=== PATIENT | female | born 1940 | race Caucasian/White ===

== ENCOUNTER → 2020-08-23 12:18 | Outpatient (CLI) | payer MEDICARE, OTHER, SELFPAY ==
--- NOTE | 2020-08-23 | DI.MG.S_ITS ---
BILATERAL DIGITAL SCREENING MAMMOGRAM 3D/2D WITH CAD: 08/23/2020 CLINICAL: Routine screening. Comparison is made to exams dated: 06/27/2018 mammogram, 06/07/2017 mammogram, and 04/19/2016 mammogram - outside location. There are scattered fibroglandular elements in both breasts. Current study was also evaluated with a Computer Aided Detection (CAD) system. There are benign calcifications in both breasts. No significant masses, calcifications, or other findings are seen in either breast. There has been no significant interval change. IMPRESSION: BENIGN There is no mammographic evidence of malignancy. A 1 year screening mammogram is recommended. This exam was interpreted at Station ID: [id number]. NOTE: For mammograms, a report in lay terms will be sent to the patient. Approximately 15% of breast malignancies will not be visualized mammographically. In the management of a palpable breast mass, a negative mammogram must not discourage biopsy of a clinically suspicious lesion. Electronically Signed By: Gurwinder meier/talia:08/23/2020 15:14:59 letter sent: Normal Exam ACR BI-RADS Category 2: Benign Finding(s) 3342F
== END ==
PROVIDERS: Referring Provider Hospitalist; Visit Provider Hospitalist
DX: Z12.31 Encounter for screening mammogram for malignant neoplasm of breast (principal)
CPT/HCPCS: 77063; 77067

== ENCOUNTER → 2021-03-15 13:08 | Outpatient (CLI) | payer MEDICARE, OTHER, SELFPAY ==
--- NOTE | 2021-03-15 | DI.RAD.S_ITS ---
PROCEDURE: XR LUMBAR SPINE MIN 4V INDICATIONS: Spondylosis without myelopathy or radiculopathy, lumbar region TECHNIQUE: 5 views of the lumbar spine were acquired, including bilateral oblique views COMPARISON: None. FINDINGS: Bones: 5 nonrib-bearing vertebrae are present. No traumatic subluxation. Mild endplate osteophytosis. No vertebral body compression fractures. No suspicious bony lesions. Facet arthrosis, most prominent at L5-S1. Soft tissues: Overlying bowel gas pattern is normal. Vascular calcifications are seen. Oblique images: No pars defects. IMPRESSION: No acute osseous abnormality. Dictated by: Hamilton Calhoun M.D. on 03/15/2021 at 15:07 Approved by: Hamilton Calhoun M.D. on 03/15/2021 at 15:09
== END ==
PROVIDERS: PCP Hospitalist; Referring Provider Hospitalist; Visit Provider Hospitalist
DX: M47.816 Spondylosis without myelopathy or radiculopathy, lumbar region (principal)
CPT/HCPCS: 72110

== ENCOUNTER → 2021-08-08 08:31 | Outpatient (ROUT) | payer SELFPAY ==
[2021-08-08 11:35] LABS: Clostridium Difficile Tox PCR Negative for C. diff (Negative)
== END ==
PROVIDERS: PCP Hospitalist; Visit Provider Emergency Medicine
DX: I10 Essential (primary) hypertension (principal); E11.9 Type 2 diabetes mellitus without complications; M19.90 Unspecified osteoarthritis, unspecified site; K21.9 Gastro-esophageal reflux disease without esophagitis
CPT/HCPCS: 87493

== ENCOUNTER → 2022-02-16 11:34 | Outpatient (CLI) | payer MEDICARE, OTHER, SELFPAY ==
--- NOTE | 2022-02-16 | DI.MG.S_ITS ---
BILATERAL DIGITAL SCREENING MAMMOGRAM 3D/2D WITH CAD: 02/16/2022 CLINICAL: Routine screening. Comparison is made to exams dated: 08/23/2020 mammogram - [facility], 06/27/2018 mammogram, and 06/07/2017 mammogram - outside location. There are scattered areas of fibroglandular density in both breasts (category b / 25%-50% glandular tissue). Current study was also evaluated with a Computer Aided Detection (CAD) system. There are benign calcifications in both breasts. No significant masses, calcifications, or other findings are seen in either breast. There has been no significant interval change. IMPRESSION: BENIGN There is no mammographic evidence of malignancy. A 1 year screening mammogram is recommended. Based on the Tyrer Cuzick model (a risk assessment model) the patient's lifetime risk is 4.3% and her 10 year risk is 0.0%. According to the ACR, ACS, and NCCN guidelines, an annual breast MRI exam along with mammogram is recommended if the patient's lifetime risk is 20% or greater. This exam was interpreted at Station ID: [id number]. NOTE: For mammograms, a report in lay terms will be sent to the patient. Approximately 15% of breast malignancies will not be visualized mammographically. In the management of a palpable breast mass, a negative mammogram must not discourage biopsy of a clinically suspicious lesion. Electronically Signed By: Jose Haddad M.D., jr/talia:02/16/2022 12:06:21 letter sent: Normal Exam ACR BI-RADS Category 2: Benign Finding(s) 3342F
== END ==
PROVIDERS: PCP Hospitalist; Referring Provider Hospitalist; Visit Provider Hospitalist
DX: Z12.31 Encounter for screening mammogram for malignant neoplasm of breast (principal)
CPT/HCPCS: 77063; 77067

== ENCOUNTER → 2022-08-16 15:49 | Outpatient (CLI) | payer MEDICARE, OTHER, SELFPAY ==
--- NOTE | 2022-08-16 | DI.RAD.S_ITS ---
PROCEDURE: XR FOOT RT MIN 3V INDICATIONS: Stress fracture, right foot, initial encounter for fracture TECHNIQUE: 3 views of the foot were acquired. COMPARISON: None. FINDINGS: Bones: Similar appearance of the bony deformity of the 5th metatarsal head. Osteopenia. Pes cavus. Midfoot joint space narrowing associated osteophytosis. Similar periosteal reaction of the 2nd through 4th metatarsals. Soft tissues: No tibiotalar joint effusion. Achilles tendon appears normal. IMPRESSION: Similar periosteal reaction of the 2nd through 4th metatarsals, probably representing healing stress fractures. Similar bony deformity of the 5th metatarsal head. Dictated by: Doc Nicholson M.D. on 08/16/2022 at 16:36 Approved by: Doc Nicholson M.D. on 08/16/2022 at 16:42
== END ==
PROVIDERS: PCP Hospitalist; Referring Provider Podiatrist Foot & Ankle Surgery; Visit Provider Podiatrist Foot & Ankle Surgery
DX: M84.374A Stress fracture, right foot, initial encounter for fracture (principal)
CPT/HCPCS: 73630

== ENCOUNTER 2023-01-30 12:03 | Outpatient (CLI) | payer MEDICARE, OTHER, SELFPAY ==
[2023-01-30] VITALS (9 sets, daily range): BP systolic 171–200; BP diastolic 72–85; PULSE 66–75; RESP 15–20; TEMP 36.1; O2SAT 97–100
--- NOTE | 2023-01-30 12:05 | DI.RAD.S_ITS ---
PROCEDURE: PAIN L/SI FACET INJ/BLK 1STL INDICATIONS: SPONDYLOSIS COMPARISON: None. FINDINGS: Fluoroscopic spot filming was performed to verify placement of spinal needles at the right L4, L5 and S1 pedicles level(s), as labeled on the films. Appropriate location(s) of the needle tip(s) was confirmed by injection of iodinated contrast. IMPRESSION: Access needles at the right L4, L5 and S1 pedicles for right L4, L5 and S1 medial branch blocks. Dictated by: Sandie Henderson MD, PhD on 01/30/2023 at 15:04 Approved by: Sandie Henderson MD, PhD on 01/30/2023 at 15:05
[2023-01-30] MEDS: MIDAZOLAM 2 MG/2 ML VIAL IV (13:28)
[2023-01-30] MEDS: IOPAMIDOL 15 ML VIAL 3 ML INJ (13:33)
[2023-01-30] MEDS: BUPIVACAINE 0.5% (PF) 10 ML VIAL 2 ML INJ (13:33)
--- NOTE | 2023-01-30 13:50 | P.PCN_ITS ---
Date/Time/Diagnoses Date of procedure: 01/30/23 Time of procedure: 13:50 Pre-procedure diagnosis: 1. FACET ARTHROPATHY Post-procedure diagnosis: same Procedure Notes Procedure: 1. Right L4, L5 and S1 MB BLOCKS LA Indications: Ida is referred by Dr. Love for treatment of Right Axial LBP. Physician: Ricki Chavarria Total Fluoroscopy time (seconds): 6 Total sedation minutes: 14 Complications: none Procedure in detail & Post-procedure care: DESCRIPTION OF PROCEDURE Fluoroscopically guided, contrast-controlled right L4, L5 and S1 medial branch blocks with 0.5cc of 0.5% Marcaine. Following review of allergy and review of potential side effects and complications, including, but not necessarily limited to, infection, allergic reaction, local tissue breakdown, nerve injury, paralysis, stroke and possible , the patient indicated that the patient understood and agreed to proceed. An informed consent document was signed by the patient, witnessed by a nurse, and placed in the patient's chart. After review of previous anaesthesic history and IV conscious sedation the patient was deemed safe to proceed with today?s procedure with IV conscious sedation as ASA class II designation. Safety time-out was performed to confirm patient ID, procedure to be performed and site of procedure. IV sedation was accomplished with a combination of 2mg of Versed was administered by the RN after DO order, titrated to patient comfort during the course of the procedure while the patient remained responsive to all verbal commands In the prone position, following sterile prep and drape of the lumbar region, the right L4, L5 and S1 anatomical location of the medial branch of the dorsal ramus was identified fluoroscopically. Subsequently an anesthetic skin wheal using 1% lidocaine solution was initiated at each of the anatomical spots. Subsequently then a 22-gauge 3.5-inch spinal needle was atraumatically introduced and advanced under fluoroscopic guidance at each of the corresponding sites at the right L4, L5 and S1 MB. After negative aspiration, 0.2 cc of Isovue 200 was injected, confirming placement without vascular or intrathecal uptake. Subsequently then 0.5 cc of 0.5% Marcaine solution was injected at each of the corresponding sites at the right L4, L5 and S1 medial branch locations. The patient tolerated the procedure well without signs or symptoms of complications. The procedure tolerated the procedure well without signs or symptoms of complications prior to transfer to the recovery area continued monitoring without incident. Post-procedure, the patient was monitored initiating provocative activities to measure the amount of relief from block of the facetogenic pain. The patient reported a VAS of 7 prior to the procedure and a post-procedure VAS of 1. It has been a pleasure to assist in the diagnostic and therapeutic care of your patient. POST OP INSTRUCTIONS The patient was provided with a Pain Log to complete over the next several hours and subsequent days prior to the patient's follow up with the ordering physician. If the patient has rehabilitation liaison relief to the solution applied, then they may be a candidate for medial branch rhizotomy. The patient is aware, was provided, once again, with a Pain Log and will follow up with the referring physician for review and clinical correlation.
== END 2023-01-30 14:05 | disposition home or self-care (01) ==
PROVIDERS: PCP Hospitalist; Referring Provider Physical Medicine & Rehabilitation; Visit Provider Physical Medicine & Rehabilitation
DX: M47.816 Spondylosis without myelopathy or radiculopathy, lumbar region (principal); M47.817 Spondylosis without myelopathy or radiculopathy, lumbosacral region
CPT/HCPCS: 64493; 64494; 99152; J2250